=== PATIENT | male | born 1960 | race Caucasian/White ===

== ENCOUNTER 2019-11-13 13:13 | Observation (INO) ==
[2019-11-13 13:51] LABS: Hematocrit 20.4 % (37.5-50.1); Hemoglobin 6.6 g/dL (12.9-16.9); Mean Corpuscular HGB Conc 32.4 g/dL (31.6-35.5); Mean Corpuscular Hemoglobin 33.2 pg (28.0-33.3); Mean Corpuscular Volume 102.5 fL (83.0-100.0); Mean Platelet Volume 9.4 fL (9.4-12.4); Nucleated Red Blood Cells 0.1 /100 WBC (0); Platelet Count 168 K/mcL (140-400); Red Blood Count 1.99 M/mcL (4.19-5.50); Red Cell Distribution Width 21.1 % (11.5-14.5); White Blood Count 26.1 K/mcL (4.3-11.1)
[2019-11-13 14:09] LABS: Alanine Aminotransferase 31 Units/L (7-52); Albumin 4.4 g/dL (3.5-5.7); Albumin/Globulin Ratio 2.1 (1.1-2.2); Alkaline Phosphatase 62 Units/L (34-104); Aspartate Amino Transferase 27 Units/L (13-39); BUN/Creatinine Ratio 14 (6-26); Bilirubin,Total 0.4 mg/dL (0.3-1.0); Blood Urea Nitrogen 14 mg/dL (6-20); Calcium 9.1 mg/dL (8.6-10.3); Carbon Dioxide 23 mEq/L (23-29); Chloride 108 mEq/L (98-107); Globulin 2.1 g/dL (2.4-3.5); Glucose 178 mg/dL (70-105); Osmolality,Calculated 289 (280-300); Sodium 137 mEq/L (136-145); Total Protein 6.5 g/dL (6.4-8.9); eGFR For African Americans > 60 (> 60); eGFR For Non-African Americans > 60 (> 60)
[2019-11-13 14:21] LABS: Lymphocytes # 3.1 K/mcL (0.6-4.6); Neutrophils # 20.4 K/mcL (1.6-8.9); Platelet Estimate Normal (Normal)
[2019-11-13] MEDS ORDERED: 0.9 % Sodium Chloride 250 ML ONE ×2 (14:41→22:27)
[2019-11-13] MEDS ORDERED: Naloxone 0.4 MG/ML INJ IVP PRN (16:49)
[2019-11-13] MEDS ORDERED: Acetaminophen 325 MG TABLET PO PRN (16:49)
[2019-11-13] MEDS ORDERED: Isovue-370 500 ML BOTTLE IVP ONE ×2 (16:53)
[2019-11-13] MEDS ORDERED: *HR* Heparin 5,000 UNIT/ML VIAL SQ SCH (18:00)
[2019-11-13 20:41] LABS: % Iron Saturation 90 % (20-55); C-Reactive Protein < 5 mg/L (Less than 10); INR 1.1; Iron 260 mcg/dL (65-175); Lactate Dehydrogenase 254 Units/L (140-271); Prothrombin Time 12.8 Seconds (9.4-12.1); Transferrin 207 mg/dL (203-362)
[2019-11-13 21:04] LABS: Hematocrit 20.9 % (37.5-50.1); Hemoglobin 6.6 g/dL (12.9-16.9)
[2019-11-13 21:07] LABS: Ferritin 993 ng/mL (20-250)
[2019-11-13 21:20] LABS: Mean Corpuscular Hemoglobin 32.5 pg (28.0-33.3); Mean Corpuscular Volume 101.5 fL (83.0-100.0); Mean Platelet Volume 9.4 fL (9.4-12.4); Nucleated Red Blood Cells 0.1 /100 WBC (0); Platelet Count 145 K/mcL (140-400); Red Blood Count 2.03 M/mcL (4.19-5.50); White Blood Count 20.9 K/mcL (4.3-11.1)
[2019-11-13 21:42] LABS: Anisocytosis 1+ (Not Present); Lymphocytes # 2.9 K/mcL (0.6-4.6); Monocytes # 2.1 K/mcL (0.0-1.3); Neutrophils # 12.5 K/mcL (1.6-8.9)
[2019-11-13 21:44] LABS: Platelet Estimate Slight Decrease (Normal)
[2019-11-13 22:04] LABS: Folate > 22.3 ng/mL (3.0-16.0); Vitamin B12 1033 pg/mL (250-1100)
[2019-11-14 03:15] LABS: Hematocrit 23.4 % (37.5-50.1); Hemoglobin 7.3 g/dL (12.9-16.9); Mean Corpuscular HGB Conc 31.2 g/dL (31.6-35.5); Mean Corpuscular Hemoglobin 30.7 pg (28.0-33.3); Mean Corpuscular Volume 98.3 fL (83.0-100.0); Mean Platelet Volume 9.3 fL (9.4-12.4); Nucleated Red Blood Cells 0.1 /100 WBC (0); Platelet Count 137 K/mcL (140-400); Red Blood Count 2.38 M/mcL (4.19-5.50); Red Cell Distribution Width 20.8 % (11.5-14.5); White Blood Count 19.1 K/mcL (4.3-11.1)
[2019-11-14 03:38] LABS: Alanine Aminotransferase 30 Units/L (7-52); Albumin 4.1 g/dL (3.5-5.7); Albumin/Globulin Ratio 2.1 (1.1-2.2); Alkaline Phosphatase 51 Units/L (34-104); Aspartate Amino Transferase 26 Units/L (13-39); BUN/Creatinine Ratio 16 (6-26); Bilirubin,Total 0.5 mg/dL (0.3-1.0); Blood Urea Nitrogen 15 mg/dL (6-20); Calcium 8.7 mg/dL (8.6-10.3); Carbon Dioxide 23 mEq/L (23-29); Chloride 107 mEq/L (98-107); Chol/HDL Ratio 6.1 (0-4.9); Cholesterol 121 mg/dL (< 200); Glucose 114 mg/dL (70-105); HDL Cholesterol 20 mg/dL (40-59); LDL Cholesterol,Calculated 64 mg/dL (< 100); Osmolality,Calculated 288 (280-300); Sodium 138 mEq/L (136-145); Total Protein 6.1 g/dL (6.4-8.9); Triglycerides 183 mg/dL (< 150); eGFR For African Americans > 60 (> 60); eGFR For Non-African Americans > 60 (> 60)
[2019-11-14 03:45] LABS: Bilirubin,Urine Negative (Negative); Blood,Urine Negative (Negative); Clarity,Urine Clear (Clear); Color,Urine Light-Yellow (Yellow); Glucose,Urine (UA) Normal (Normal); Ketones,Urine Negative (Negative); Leukocyte Esterase,Urine Negative (Negative); Nitrite,Urine Negative (Negative); Protein,Urine Negative (Neg-Trace); Specific Gravity,Urine > 1.030 (1.010-1.025); Urobilinogen,Urine Normal (Normal)
[2019-11-14 03:59] LABS: Anisocytosis 1+ (Not Present); Eosinophils # 0.4 K/mcL (0.0-0.6); Lymphocytes # 4.2 K/mcL (0.6-4.6); Monocytes # 0.8 K/mcL (0.0-1.3); Neutrophils # 9.2 K/mcL (1.6-8.9); Platelet Estimate Slight Decrease (Normal)
[2019-11-14] MEDS: Aspirin 81 MG TAB.CHEW PO SCH (10:06)
[2019-11-14] MEDS: Vitamin B Complex/Vit C/Vit E 1 EACH TABLET PO SCH (10:06)
[2019-11-14] MEDS ORDERED: 0.9 % Sodium Chloride 250 ML ONE (19:50)
[2019-11-15 05:04] LABS: Hemoglobin 7.8 g/dL (12.9-16.9); Mean Corpuscular HGB Conc 32.5 g/dL (31.6-35.5); Mean Corpuscular Hemoglobin 31.2 pg (28.0-33.3); Mean Platelet Volume 9.3 fL (9.4-12.4); Platelet Count 123 K/mcL (140-400); Red Cell Distribution Width 21.8 % (11.5-14.5); White Blood Count 18.4 K/mcL (4.3-11.1)
[2019-11-15 05:31] LABS: Anisocytosis 2+ (Not Present); BUN/Creatinine Ratio 14 (6-26); Blood Urea Nitrogen 13 mg/dL (6-20); Calcium 8.7 mg/dL (8.6-10.3); Carbon Dioxide 22 mEq/L (23-29); Chloride 108 mEq/L (98-107); Eosinophils # 0.4 K/mcL (0.0-0.6); Glucose 132 mg/dL (70-105); Lymphocytes # 6.6 K/mcL (0.6-4.6); Macrocytosis Present (Not Present); Microcytosis Present (Not Present); Monocytes # 1.5 K/mcL (0.0-1.3); Neutrophils # 9.9 K/mcL (1.6-8.9); Osmolality,Calculated 290 (280-300); Potassium 3.8 mEq/L (3.5-5.1); Sodium 139 mEq/L (136-145); eGFR For African Americans > 60 (> 60); eGFR For Non-African Americans > 60 (> 60)
[2019-11-15 05:32] LABS: Platelet Estimate Slight Decrease (Normal); Reactive Lymphocytes Present (Not Present)
[2019-11-15] MEDS ORDERED: *HR* Midazolam HCl 2 MG/2 ML VIAL ONE (09:38)
[2019-11-15] MEDS ORDERED: 0.9 % Sodium Chloride 500 ML ONE (09:38)
[2019-11-15] MEDS ORDERED: *HR* FentaNYL (PF) 100 MCG/2 ML VIAL ONE (09:38)
[2019-11-15] MEDS ORDERED: *HR* FentaNYL (PF) 100 MCG/2 ML VIAL IVP ONE (09:45)
[2019-11-15] MEDS ORDERED: *HR* Midazolam HCl 2 MG/2 ML VIAL IVP ONE (09:45)
[2019-11-15 12:11] VITALS: BP 142/81
[2019-11-15] MEDS: Aspirin 81 MG TAB.CHEW PO SCH (12:34)
[2019-11-15] MEDS: Vitamin B Complex/Vit C/Vit E 1 EACH TABLET PO SCH (12:34)
[2019-11-15] MEDS ORDERED: FLU Vac QV HD 20-21 (65YR+)/PF 0.7 ML SYRINGE IM ONE (14:17)
[2019-11-15] MEDS ORDERED: FLU Vac QV 20-21 (6Month+)/PF 0.5 ML SYRINGE IM ONE (14:30)
[2019-11-16 11:51] LABS: ANA IgG by ELISA NONE DETECTED (None Detected)
[2019-11-17 17:07] LABS: Alpha 2 Globulin (PEP) 0.67 g/dL (0.48-1.05); Beta Globulin (PEP) 0.53 g/dL (0.48-1.10)
[2019-11-18 02:50] LABS: Alpha 2 Globulin (PEP) 0.68 g/dL (0.48-1.05); Beta Globulin (PEP) 0.56 g/dL (0.48-1.10)
[2019-11-18 07:09] LABS: IFE Reflexed NOT DONE
[2019-11-18 07:41] LABS: IFE Reflexed NOT DONE
[2019-11-19 18:32] LABS: BCR-ABL1 Specimen Source NOT SPECIFIED
== END 2019-11-15 15:25 | disposition home or self-care (01) ==
LOC: EMEROOARM 13:13 → 3ANU 13:13 → SUATTDRO 15:21 → 3ANU 16:38
PROVIDERS: ADMIT Internal Medicine; ATTEND Internal Medicine